=== PATIENT | female | born 1965 | race Caucasian/White ===

== ENCOUNTER → 2016-10-25 | Day surgery (SDC) | payer BC ==
[~2016-10-25] VITALS: Ht 172.7 cm; Wt 109.1 kg
[~2016-10-25] MED LIST: ARMO60TA PO; BACITRACIN TOP OINT 15 GM TUBE ONE; BUPIVACAINE HCL PF 0.5% 30 ML VIAL ONE; DEXAMETHASONE SOD PHOS 4 MG/ML VIAL ONE; DO NOT ADM ANY ANTICOAGULANT DRUGS XX PRN; FAMOTIDINE 20 MG/2 ML VIAL ONE; HYDROmorphone HCL PF 1 MG/ML VIAL IV PRN; INSULIN HUMAN REGULAR 1,000 UNITS/10 ML VIAL SQ PRN; LACTATED RINGER'S 1000 ML IV SCH; LIDOCAINE HCL 1% 50 ML VIAL ONE; LIDOCAINE HCL 2% PF SOLN 10 ML VIAL ONE; METOPROLOL TARTRATE 25 MG TAB PO PRN; MIDAZOLAM HCL 2 MG/2 ML VIAL ONE; NEOSTIGMINE 3 MG/3 ML SYR IV ONE; ONDANSETRON HCL 4 MG/2 ML VIAL IV PUSH ONE; ONDANSETRON HCL 4 MG/2 ML VIAL IV PUSH PRN; PROPOFOL 200 MG/20 ML AMP IV ONE; SODIUM CHLORID 0.9% 500 ML IV SCH; ceFAZolin 1,000 MG/NS 100 ML IV SCH; fentaNYL CITRATE 250 MCG/5 ML AMP ONE
[2016-10-25 09:28] VITALS: BP 159/75; PULSE 63; RESP 18; TEMP 98.1; O2SAT 97
[2016-10-25] MEDS: LIDOCAINE HCL 2% 50 ML VIAL ONE ×2 (12:31→14:05)
[2016-10-25 15:30] VITALS: BP 149/79; PULSE 66; RESP 16; TEMP 98.6; O2SAT 97
--- NOTE | 2016-10-27 08:36 | MP ---
cc: PAULINA REID DATE OF SURGERY: 10/25/2016 PREOPERATIVE DIAGNOSIS Mass, right wrist. POSTOPERATIVE DIAGNOSIS Mass, right wrist. PROCEDURE 1. Excision mass, right wrist. 2. Neurolysis ulnar nerve at the wrist, right. SURGEON Dr. Paulina Reid ANESTHESIA General and local TOURNIQUET TIME 63 minutes at 250 mmHg. SPECIMEN 1. Mass. 2. Synovitis, right wrist. 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 She saw Dr. Abarca in the past and elected to proceed with conservative treatment. She re-presented to the office on October 16, 2016 with significant pain and paresthesias in the ulnar nerve distribution. She underwent corticosteroid injection by an outside physician with minimal improvement and then I aspirated a small amount of clear fluid from the mass but the patient still had persistent pain. MRI showed a small tear in the membranous portion of the TFCC with fluid around the FCU, not consistent with a neuroma. The patient requested surgical excision. Risks were explained but not limited to wound complications, infection, recurrence, persistent pain, persistent paresthesias, stiffness, need for additional surgeries and she elected to proceed. DESCRIPTION OF PROCEDURE The patient was identified in the preoperative holding area and the correct extremity was marked. The patient was taken back to the operating room where anesthesia was induced. Right upper extremity was prepped and draped in normal sterile fashion. Tourniquet was inflated to 250 mmHg for 63 minutes. A longitudinal incision was made on the ulnar side of the wrist. The ulnar nerve was identified and there was significant compression on the ulnar nerve from the swelling. The ganglion cyst was traced back and was emanating from the area of the TFCC. This was sent for pathology. There was also significant compression on the sensory branch of the ulnar nerve. There was also significant synovitis around the flexor tendons which was also sent to pathology. Loupe magnification and microsurgical technique was used to perform ulnar nerve neurolysis a the wrist. Care was taken to protect all branches of the ulnar nerve and again there was very significant compression and the mass wrapped around the ulnar nerve motor branch as well as the sensory branch. The distal ulnar joint was identified and the ganglion was emanating from this joint, this was irrigated. Tourniquet was released. Hemostasis was obtained. The patient did have palpable ulnar and radial pulses. The skin was closed with 3-0 Monocryl as well as 4-0 nylon. The patient was placed into a splint and awoken from anesthesia without any complications. Approximately 15 ccs of 2% lidocaine with no epinephrine was used for local anesthesia over the area. I will see the patient back in 2 weeks for wound check. She understands she will likely wear a splint for 4 weeks and is at high risk for recurrence of the ganglion. MD JOEY Berger/TLL /2:46 PM /8:24 AM MTDD
== END | disposition home or self-care (01) ==
LOC: HSDC 08:41
PROVIDERS: ATTEND Orthopaedic Surgery
DX: M67.431 Ganglion, right wrist (principal); M65.9 Synovitis and tenosynovitis, unspecified
CPT/HCPCS: 01810; 25111; 64719; 88304; 88305; J0690; J1100; J2250; J2405; J2710; J3010; J7120